=== PATIENT | female | born 1975 | race Caucasian/White ===

== ENCOUNTER → 2018-08-21 | Outpatient (CLI) | payer MEDICAID ==
--- NOTE | 2018-08-23 08:53 | MM ---
Reason for exam: screening (asymptomatic). Last mammogram was performed 2 years and 8 months ago. History: Patient had first child at age 30. Physical Findings: A clinical breast exam by your physician is recommended on an annual basis and results should be correlated with mammographic findings. MG Screening Mammo w CAD Bilateral CC and MLO view(s) were taken. Prior study comparison: December 15, 2015, bilateral MG screening mammo w CAD. The breast tissue is heterogeneously dense. This may lower the sensitivity of mammography. No significant changes when compared with prior studies. ASSESSMENT: Negative, BI-RAD 1 RECOMMENDATION: Routine screening mammogram of both breasts in 1 year.
== END | disposition home or self-care (01) ==
LOC: RADMAMWWP 11:34
PROVIDERS: ATTEND Obstetrics & Gynecology
DX: Z12.31 Encounter for screening mammogram for malignant neoplasm of breast (principal)
CPT/HCPCS: 77067

== ENCOUNTER → 2019-01-03 | Outpatient (CLI) | payer MEDICAID ==
[2019-01-03 12:18] LABS: Basophils % (A) 1 %; Eosinophils # (A) 0.1 k/uL (0-0.7); Eosinophils % (A) 2 %; HGB 12.9 gm/dL (11.4-16.0); Lymphocytes # (A) 1.6 k/uL (1.0-4.8); Lymphocytes % (A) 28 %; MCH 29.2 pg (25.0-35.0); MCHC 31.4 g/dL (31.0-37.0); MCV 92.8 fL (80.0-100.0); Mean Platelet Volume 7.5; Monocytes # (A) 0.3 k/uL (0-1.0); Monocytes % (A) 5 %; Neutrophils # (A) 3.5 k/uL (1.3-7.7); Neutrophils % (A) 61 %; Platelet Count 220 k/uL (150-450); RBC 4.42 m/uL (3.80-5.40); RDW 13.1 % (11.5-15.5); WBC 5.6 k/uL (3.8-10.6)
[2019-01-03 16:32] LABS: Magnesium 2.1 mg/dL (1.5-2.4)
[2019-01-03 16:33] LABS: African American GFR (CKD) 103.2 (60.0-200.0); BUN/Creat Ratio 17.5 Ratio (12.00-20.00); Calcium 9.7 mg/dL (8.7-10.3); Potassium 4.3 mmol/L (3.5-5.5)
== END | disposition home or self-care (01) ==
LOC: LABWHC1 11:22
PROVIDERS: ATTEND Urology
DX: Z01.812 Encounter for preprocedural laboratory examination (principal); R35.0 Frequency of micturition; N39.46 Mixed incontinence; N81.4 Uterovaginal prolapse, unspecified; N81.6 Rectocele
CPT/HCPCS: 36415; 80048; 83735; 85025; 87086

== ENCOUNTER 2019-01-11 06:03 | Observation (INO) | payer MEDICAID ==
[2019-01-04 10:10] VITALS: BMI 27.0
--- NOTE | 2019-01-05 08:53 | P.GSHP ---
History of Present Illness H&P Date: 01/05/19 Chief Complaint: Mixed urinary incontinence The patient is a 43-year-old white female with a one-year history of mixed urinary incontinence, which limits her physical activity but does not require the use of pads. She also has pelvic prolapse, and is scheduled to undergo a T VH with AP repair by Dr. Ponce. - Gastrointestinal Gastrointestinal: Reports heartburn - Genitourinary (Female) Genitourinary: Denies dysuria, Denies hematuria Past Medical History Past Medical History: GERD/Reflux History of Any Multi-Drug Resistant Organisms: None Reported Past Surgical History: Adenoidectomy Additional Past Surgical History / Comment(s): D&C. Past Anesthesia/Blood Transfusion Reactions: No Reported Reaction Past Psychological History: No Psychological Hx Reported Smoking Status: Never smoker Past Alcohol Use History: None Reported Past Drug Use History: None Reported - Past Family History Mother Family Medical History: No Reported History Medications and Allergies Home Medications Medication Instructions Recorded Confirmed Type Cetirizine HCl [Zyrtec] 10 mg PO DAILY 01/04/19 01/04/19 History Lansoprazole [Prevacid] 15 mg PO DAILY 01/04/19 01/04/19 History Allergies Allergy/AdvReac Type Severity Reaction Status Date / Time No Known Allergies Allergy Verified 01/04/19 10:10 Surgical - Exam - General well developed, well nourished, no distress - Respiratory normal respiratory effort - Abdomen Abdomen: soft, non tender, no guarding, no rigid, no rebound - Genitourinary normal external genitalia, normal perineum, other (Grade 3 cystocele, grade 2 rectocele, urethral hypermobility. Stress incontinence not demonstrated.) - Psychiatric oriented to time, oriented to person, oriented to place, speech is normal, memory intact Assessment and Plan (1) Mixed urinary incontinence due to female genital prolapse Status: Acute Code(s): N39.46 - MIXED INCONTINENCE; N81.9 - FEMALE GENITAL PROLAPSE, UNSPECIFIED SNOMED Code(s): 686108982 Plan: Obtryx mid urethral sling, to be performed at the time of the TVH and AP repair. It was explained to the patient that loss of urethral/vesical neck support is common in patients with pelvic prolapse. The rationale for a sling was discussed, and specifically the controversy surrounding mesh products was discussed. She prefers a synthetic sling over an autologous fascial sling. Potential risks were reviewed, which include anesthesia, bleeding, infection, graft erosion, postoperative urinary retention, persistent incontinence, and pain.
[~2019-01-11 06:03] MED LIST: DEXAMETHASONE SOD PHOSPHATE 10 MG/ML 1 ML VIAL IV ONE; HYDROmorphone 0.5 MG/0.5 ML SYRINGE IVP PRN; LACTATED RINGERS 1,000 ML IV SCH; MIDAZOLAM 2 MG/2 ML VIAL IV PRN; ONDANSETRON 4 MG/2 ML VIAL IVP ONE
[2019-01-11] MEDS ORDERED: LIDOCAINE 1% 20 ML VIAL (10MG/ML) FOR IV START INTRADERMA ONE (06:32)
[2019-01-11] MEDS ORDERED: LACTATED RINGERS 1,000 ML IV ONE ×3 (06:35→10:30)
[2019-01-11] MEDS ORDERED: MIDAZOLAM (PF) 2 MG/2 ML VIAL IVP ONE (06:54)
[2019-01-11] MEDS ORDERED: fentaNYL (PF) 50 MCG/ML 2 ML AMP IVP ONE (06:57)
[2019-01-11] MEDS ORDERED: GENTAMICIN 120 MG in SODIUM CHLORIDE 0.9% 100 ML IVPB ONE (07:00)
[2019-01-11] MEDS ORDERED: MIDAZOLAM 2 MG/2 ML VIAL ONE (07:25)
[2019-01-11] MEDS ORDERED: SUCCINYLCHOLINE CHLORIDE 100 MG/5 ML SYR IV ONE (07:25)
[2019-01-11] MEDS ORDERED: LIDOCAINE 1% INJ 10MG/ML (20 ML MDV) ONE (07:25)
[2019-01-11] MEDS ORDERED: fentaNYL (PF) 50 MCG/ML 2 ML AMP ONE (07:25)
[2019-01-11] MEDS ORDERED: PROPOFOL 10 MG/ML 20 ML VIAL IV ONE (07:25)
[2019-01-11] MEDS ORDERED: HYDROmorphone 0.5 MG/0.5 ML SYRINGE IVP PRN (07:32)
[2019-01-11] MEDS ORDERED: NALOXONE 0.4 MG/ML 1 ML VIAL IV PRN (07:32)
[2019-01-11] MEDS ORDERED: VASOPRESSIN 20 UNIT/ML 1 ML VIAL SQ ONE (07:53)
[2019-01-11] MEDS ORDERED: BACITRACIN 500 UNIT/GM OINT 28.4 GM TUBE TOPICAL ONE (07:58)
--- NOTE | 2019-01-11 08:51 | P.OP ---
Date of Procedure: 01/11/19 Preoperative Diagnosis: uterine prolpase, cystocele, rectocele, urinary stress incontinence Postoperative Diagnosis: same, normal appearing ovaries Procedure(s) Performed: vaginal hysterectomy, A nd P repairs, sling procedure Anesthesia: MARISAA Surgeon: Bharati Ponce Boom Conveyor Operator #1: Bandar Roberts Estimated Blood Loss (ml): 50 Urine output (ml): 150 Pathology: other (Cervix and uterus) Condition: stable Disposition: PACU Indications for Procedure: Symptomatic prolapse Operative Findings: Normal-appearing ovaries bilaterally Description of Procedure: Patient is brought to the operating suite where a spinal with Duramorph is placed, followed by general anesthetic. Antibiotics are given. The appropriate timeout is performed to assure proper patient and procedural identification. The weighted speculum was placed into the vagina after the bladder is drained for 150 mL of clear yellow urine. Cervix is grasped with a double-tooth tenaculum. Cervix is injected circumferentially with a dilute Pitressin solution. A akutan blade scalpel is used to incise the mucosa circumferentially with a V positioning at 6:00. Sponge rolled finger is used to sweep the mucosa from the underlying fascial plane. Peritoneum is entered at 6:00, suture tied with 2-0 Vicryl and held. Large billed speculum was then placed. At all times the mucosa is swept well from the operative field to avoid bladder and/or ureteral injury. The right uterosacral ligament complex is identified, clamped, cut, held with 0 Vicryl laterally. The same procedure is carried out contralaterally. Uterine vasculature is now identified, clamped cut and suture ligated. 2 additional pedicles are taken superior to the vessels. Anterior peritoneum was entered at 12:00. Uterus is "walked out" posteriorly. Davidson clamps are used across the pedicles and the specimen is removed. 0 Vicryl sutures used in a Jair fashion to tie, flashed, and retied a pedicles for excellent hemostasis. Ovaries are visualized with a sponge stick, noted to be normal, and left in situ per patient's wishes. Hemostasis is very good. The 2-0 Vicryl suture is brought around in a pursestring fashion to close the peritoneal cuff. The uterosacral cardinal ligament pedicles are brought across to incorporate the opposite pedicle and vaginal mucosa, and the vagina is closed. An additional [id number]-fk-solul sutures used posteriorly. Gutierrez catheter is placed, urine is clear. Allis clamps are used now on the mucosal defect. It is injected with the same dilute Pitressin solution in the midline. Metzenbaum scissors are used to open the anterior vaginal mucosa to the apex of the defect. Sponge rolled finger is used to sweep the mucosa from the underlying fascial plane. Mucosa is held in a fanlike fashion with Allis clamps. 2-0 Vicryl is used to support the fashion now to reduce the cystocele. This is done in an interrupted fashion. The mucosa is trimmed, and the repair is now held for Dr. Worley' attention. The rectocele repair is now commenced. A triangular portion of tissue is removed on the perineal body. The posterior vaginal mucosa is injected with dilute Pitressin in the midline to the apex of the defect. Metzenbaum scissors are used to incise the mucosa. It is held laterally with Allis clamps. Sponge rolled finger is used to sweep the mucosa from the underlying fascial plane. 2- 0 Vicryl suture is used in an interrupted fashion to bring the fascial edges together thereby reducing the rectocele. Redundant mucosa is trimmed with Metzenbaum scissors. 2-0 Vicryl sutures used in a running locking fashion to close the posterior repair, with an episiotomy-like closure to complete. Hemostasis is very good. Total estimated blood loss 50 mL for my portion of the surgery. Dr. Worley now enters the room to complete the sling procedure, please see separately dictated note. All sponge needle and instrument counts are correct at the end of my procedure.
--- NOTE | 2019-01-11 10:07 | P.OP ---
Date of Procedure: 01/11/19 Preoperative Diagnosis: Mixed Urinary Incontinence Postoperative Diagnosis: Same Procedure(s) Performed: Obtryx Subfascial Sling Anesthesia: PRAMOD Surgeon: Dio Diamond Estimated Blood Loss (ml): 50 IV fluids (ml): 600 Pathology: none sent Condition: stable Disposition: PACU Indications for Procedure: The patient is a 43-year-old white female with a one-year history of mixed urinary incontinence, which limits her physical activity but does not require the use of pads. She also has pelvic prolapse, and is scheduled to undergo a TVH with AP repair by Dr. Ponce. Operative Findings: No anatomic abnormalities noted. Description of Procedure: I entered the operating room as Dr. Ponce completed the TVH and AP repair. The patient was positioned in the dorsolithotomy position, with her legs supported in candycane stirrups. Her condition was stable. The lateral dissection within the submucosal plane to the inferior pubic ramus had already been performed. The scalpel was used to make bilateral groin incisions at the level of the clitoris. Subcutaneous tissues were spread with a hemostat. Each of the helical needles were passed through the respective groin incision, and turned such that the needle tip wrapped around the pubis. The needle tips were guided digitally into the vaginal incision. The Obtryx graft, which had been previously soaked in antibiotic solution, was secured to the needle tips in the standard fashion. The needles were then withdrawn, and the position of the graft was adjusted such that it overlie the mid urethra, as desired. With a hemostat placed between the graft and the urethra to prevent tension of the graft over the urethra, the plastic sheath was removed from the ends of the graft. The ends of the graft were cut beneath the skin incisions, and these incisions were closed using 4-0 Vicryl suture in a subcuticular fashion. However, at this point, the graft was examined and was looser than desired. The ends of the graft could not be identified within the groin incisions, and therefore the graft was removed and the procedure was repeated. The graft overlied the mid urethra, with appropriate tension. Hemostasis within the vaginal incision was adequate, and the vaginal incision was closed using 2-0 Vicryl suture in a running fashion. Cystoscopy was performed. The 30 lens was used to introduce the 19-[place] Storz cystoscopic sheath through the urethra and into the bladder under direct vision. The urethra and bladder were unremarkable. There was no evidence of perforation. Both ureteral orifices were of normal anatomic location and configuration, and clear urine effluxed from both. No tumors or foreign bodies were seen. The cystoscope was removed, and the Gutierrez catheter was replaced into the bladder. Vaginal packing was placed. All sponge and needle counts were correct. The patient tolerated the procedure well was taken to the recovery room in stable condition.
[2019-01-11] MEDS ORDERED: ONDANSETRON 4 MG/2 ML VIAL IVP ONE (10:17)
[2019-01-11] MEDS ORDERED: PROMETHAZINE INJ 25 MG/ML 1 ML VIAL IVPB ONE (10:32)
[2019-01-11] MEDS: PANTOPRAZOLE 40 MG TABLET PO SCH (12:43)
[2019-01-11] MEDS: NALBUPHINE 10 MG/ML (1 ML AMP) IV PRN ×3 (13:24→23:22)
[2019-01-11] MEDS ORDERED: ONDANSETRON 4 MG/2 ML VIAL IVP STA (13:44)
[2019-01-11] MEDS ORDERED: DEXAMETHASONE SOD PHOSPHATE 10 MG/ML 1 ML VIAL IV STA (13:45)
[2019-01-11] MEDS: ONDANSETRON 4 MG/2 ML VIAL IVP PRN ×2 (13:52→20:09)
[2019-01-11] MEDS: DEXTROSE 5%-0.45% NACL 1,000 ML IV SCH (14:13)
[2019-01-11] MEDS: KETOROLAC 30 MG/ML 1 ML VIAL IVP PRN ×2 (15:06→21:21)
[2019-01-11] MEDS ORDERED: ceFAZolin 1 GM in SODIUM CHLORIDE 0.9% 100 ML IVPB SCH (16:00)
[2019-01-11] MEDS ORDERED: PROMETHAZINE INJ 6.25 MG in SODIUM CHLORIDE 0.9% 50 ML IVPB PRN (17:45)
[2019-01-12] MEDS: ONDANSETRON 4 MG/2 ML VIAL IVP PRN (02:15)
[2019-01-12] MEDS: DEXTROSE 5%-0.45% NACL 1,000 ML IV SCH (02:17)
--- NOTE | 2019-01-12 07:41 | P.PN ---
Progress Note - Text Progress Note Date: 01/12/19 Patient without complaints. Nausea subsided with aggressive treatment. Pain controlled. Denies headache. Slight pruritis. Spinal site clean and dry. A/P POD#1 s/p vaginal hysterectomy w/ spinal duramorph - doing well
[2019-01-12] MEDS ORDERED: KETOROLAC 30 MG/ML 1 ML VIAL IVP STA ×2 (08:35→18:54)
[2019-01-12] MEDS ORDERED: LORATADINE 10 MG TAB PO SCH (09:00)
[2019-01-12] MEDS: PANTOPRAZOLE 40 MG TABLET PO SCH (10:11)
[2019-01-12 16:10] VITALS: BP 114/78; PULSE 64; RESP 16; TEMP 98.1
--- NOTE | 2019-01-12 23:39 | DS ---
DISCHARGE SUMMARY DATE OF ADMISSION: 01/11/2019. ADMITTING DIAGNOSES: 1. Increasingly symptomatic uterine prolapse. 2. Cystocele. 3. Rectocele. 4. Stress urinary incontinence. DATE OF DISCHARGE: 01/12/2019. DISCHARGE DIAGNOSES: 1. Increasingly symptomatic uterine prolapse. 2. Cystocele. 3. Rectocele. 4. Stress urinary incontinence. 5. Normal appearing ovaries bilaterally. HISTORY OF PRESENT ILLNESS: This is a 43-year-old female who presented with increasingly symptomatic pelvic organ prolapse disorder, which included uterine prolapse, cystocele, rectocele, and genuine stress urinary incontinence. She was counseled by both myself and Dr. Diamond regarding the risks and benefits of surgery. She elected to undergo a vaginal hysterectomy, anterior colporrhaphy, posterior colporrhaphy, and sling procedure. Please see dictated history and physical for details. The patient underwent this procedure on 01/11/2019 with no issue. The ovaries appeared normal to inspection and were therefore left in situ per her wishes. ESTIMATED BLOOD LOSS: [address] Diamond performed a sling procedure as well, please see separately dictated operative note. Today, the patient is doing well. She is passing flatus. The vaginal packing and Gutierrez catheter have been removed. She has been unable to void successfully spontaneously, and therefore has been instructed to perform self catheterization. She appears comfortable with this procedure. She will straight cath every 6 hours and as needed for discomfort. She has been given a prescription for Keflex 500 mg to be taken every 6 hours. She has also given a prescription for Toradol 10 mg to be taken every 6 hours as needed for pain. She is instructed to call Dr. Diamond in the office in 3 days, on Tuesday. She will follow up with me in the office in 2 weeks, and with Dr. Diamond in 1 week. She is to call with any fever, shakes or chills, copious foul- smelling vaginal drainage, with any issues with pain not alleviated with the Toradol, with any other difficulties or questions that she should encounter. The patient being discharged home in very good condition. She is reminded no car driving for 2 weeks, no heavy lifting, again nothing per vagina. MMODL / IJN: [id number] /
== END 2019-01-12 20:20 | disposition home or self-care (01) ==
LOC: OR 06:03 → 6PED 09:58 → OR 21:20 → 6PED 21:21
PROVIDERS: ADMIT Obstetrics & Gynecology; ATTEND Obstetrics & Gynecology
DX: N81.4 Uterovaginal prolapse, unspecified (principal); N39.46 Mixed incontinence; N72 Inflammatory disease of cervix uteri; N80.0 Endometriosis of uterus; K21.9 Gastro-esophageal reflux disease without esophagitis; Z79.899 Other long term (current) drug therapy
CPT/HCPCS: 57288; 58260; 57260; 81025; 88305; G0378 ×2; C1771; J2250 ×2; J1100; J2300; J2550; J0690 ×3; J2405 ×2; J2001; J3010; J1885 ×2; J1580; J0330; J2704; 88307